=== PATIENT | female | born 1980 | race Hispanic/Latino ===

== ENCOUNTER 2018-04-16 23:03 | Emergency (ER) | payer SELFPAY | END 2018-04-17 00:53 | disposition home or self-care (01) | LOC: ERS 23:03 | DX: T21.52XA Corrosion of first degree of abdominal wall, initial encounter (principal); J45.909 Unspecified asthma, uncomplicated | CPT/HCPCS: 99283 ==

== ENCOUNTER 2018-04-28 21:59 | Emergency (ER) | payer SELFPAY ==
[2018-04-28] MEDS ORDERED: Adacel (T-DAP) 0.5 ML SYRINGE ONE (22:44)
[2018-04-28] MEDS ORDERED: Acetaminophen 500 MG TAB ONE (22:44)
== END 2018-04-28 23:05 | disposition home or self-care (01) ==
LOC: ERS 21:59
DX: T52.0X1A Toxic effect of petroleum products, accidental (unintentional), initial encounter (principal); L25.3 Unspecified contact dermatitis due to other chemical products; J45.909 Unspecified asthma, uncomplicated; Z23 Encounter for immunization
CPT/HCPCS: 90471; 90715

== ENCOUNTER 2020-05-23 01:22 | Emergency (ER) | payer BC, SELFPAY | END 2020-05-23 02:15 | disposition home or self-care (01) | LOC: ERS 01:22 | DX: J02.9 Acute pharyngitis, unspecified (principal); J45.909 Unspecified asthma, uncomplicated | CPT/HCPCS: 99282 ==

== ENCOUNTER 2022-02-07 23:20 | Emergency (ER) | payer BC ==
[2022-02-08 01:47] LABS: SARS-CoV-2 NAA Rapid Test Not Detected (NotDetected)
== END 2022-02-08 00:26 | disposition home or self-care (01) ==
LOC: ERS 23:20
DX: B34.9 Viral infection, unspecified (principal); Z20.822 Contact with and (suspected) exposure to COVID-19
CPT/HCPCS: 99283

== ENCOUNTER 2024-04-30 17:43 | Emergency (ER) | payer BC ==
[2024-04-30] MEDS ORDERED: Ibuprofen 200 MG TAB ONE (19:34)
== END 2024-04-30 20:47 | disposition home or self-care (01) ==
LOC: ERS 17:43
DX: J02.9 Acute pharyngitis, unspecified (principal)
CPT/HCPCS: 87081; 87428; 87430; 99282